=== PATIENT | male | born 2000 | race Asian ===

== ENCOUNTER 2020-05-18 15:58 | Emergency (ER) | payer OTHER ==
[~2020-05-18] VITALS: Ht 170.2 cm; Wt 59.0 kg
[2020-05-18 16:09] VITALS: BP_SYST 116
--- NOTE | 2020-05-18 16:10 | NUR ---
MANOLO TO ASSUME CARE, PT HERE FROM OPTHOMOLOGIST AFTER EYE EXAM. EYE DR STATED HE HAD ISSUE WITH OPTIC NERVE AND TOLD TO GET MRI
--- NOTE | 2020-05-18 16:14 | NUR ---
Patient to ER bed 4 to gown for evaluation. Side rails up. Report given to ZAC Echevarria.
--- NOTE | 2020-05-18 16:25 | NUR ---
DR CERRATO IN TO ASSESS
--- NOTE | 2020-05-18 16:34 | NUR ---
REFUSED CT. AWARE
--- NOTE | 2020-05-18 16:40 | NUR ---
Patient given written and verbal discharge instructions and verbalizes understanding. ER MD discussed with patient the results and treatment provided. Patient in stable condition. Patient educated on pain management and to follow up with PMD. Pain Scale 0/10 Opportunity for questions provided and answered.
[2020-05-18 16:41] VITALS: BP_SYST 116
== END 2020-05-18 16:41 | disposition home or self-care (01) ==
LOC: SED 15:58
DX: Z02.9 Encounter for administrative examinations, unspecified (principal)
CPT/HCPCS: 99281